=== PATIENT | female | born 1955 | race Caucasian/White ===

== ENCOUNTER 2018-03-04 10:17 | Emergency (ER) | payer MEDICAID ==
--- NOTE | 2018-03-04 10:53 | EDPHY ---
HPI/HX/ROS/PE/MDM Narrative: CLINICAL IMPRESSION: Postmenopausal bleeding ASSESSMENT/PLAN: This is a 62-year-old female who presents to the emergency department with 5 days of postmenopausal bleeding. Patient has been postmenopausal for 11 years. Bleeding is such that she needs to use a pad but she is otherwise hemodynamically stable. Ultrasound shows a thickened endometrium up to 2 and 0.5 cm, a large 6 and 0.5 cm right ovarian cyst, and several findings consistent with either submucosal fibroids or polyps within the uterus. No obvious source of bleeding on pelvic exam. I discussed case with Dr. Kelly who agrees to see the patient in office. Patient is comfortable with this plan. Warning signs return to ED sooner alignment discharge. DIFFERENTIAL DX: Differential diagnosis includes but not limited to endometrial carcinoma, uterine cancer, ovarian cancer, cervical dysplasia, abnormal postmenopausal vaginal bleeding ED PROCEDURES: See ultrasound and imaging results below ED COURSE: Ultrasound results discussed with Radiology, patient has a thickened endometrium to 2 and 0.5 cm with polyps versus submucosal fibroids and a 6 and 0.5 cm right ovarian cyst. I discussed this with Dr. Kelly, on-call for gynecology. She will be happy to see the patient in the office for consultation. Patient prefers to have consultation here so that she can continue caring for her elderly mother versus going back to [place]. CHIEF COMPLAINT: Abnormal vaginal bleeding HPI: This is a 62-year-old female visiting our area from or again who presents to the emergency department with abnormal vaginal bleeding since . Patient reports she has been 11 years postmenopausal and just on began having spotting and passage of clots. Today she had heavier bleeding, enough that she has to wear a pad. She reports some lower pelvic cramping. She has never had postmenopausal bleeding before but was told last year during a routine pelvic exam that she had"a lot of cysts". She apparently saw specialist for this and have them biopsied. Apparently the cysts were visible on a pelvic exam and she never had an ultrasound. There is no family history of gynecologic cancer. No reported breast mass and she is up-to-date on mammograms with no abnormal findings. No history of anemia and she denies shortness of breath, lightheadedness, chest pain, palpitations. No associated abdominal pain, nausea vomiting fever or chills. Patient states she is quite confident the bleeding is not rectal or bladder in source and she denies any dysuria. PMH: Hypothyroidism, hypertension Pertinent Past Surgical History: None reported Family History: No family history of gynecologic cancer Social History: Lives in [place] again, is here taking care of her 91-year-old mother, planning on returning home in May REVIEW OF SYSTEMS: All other systems negative Constitutional: No fever, no chills, appetite change. Cardiovascular: No chest pain, no palpitations. Respiratory: No cough, no shortness of breath. Gastrointestinal: No abdominal pain, no vomiting, diarrhea. Genitourinary: No hematuria, dysuria, flank pain, +pelvic pain, abnormal vaginal bleeding Musculoskeletal: No back pain, joint swelling, joint pain, myalgias. Skin: No rashes, color change. Neurological: No headache, dizziness, weakness. PHYSICAL EXAM: General Appearance: Alert, oriented, appropriate, cooperative, NAD, well hydrated, non-toxic appearing, VSS, no hypoxia. Respiratory: There are no retractions, lungs are clear to auscultation. Cardiac: Regular rate and rhythm, no murmurs or gallops. Gastrointestinal: Abdomen is soft, nontender, bowel sounds normal, no masses/ hernia, no rigidity, guarding or focal peritoneal findings. Genitourinary: Pelvic exam performed by myself, chaperoned by Eden GILMORE. Patient has bleeding that appears to be coming from the cervical os. There did not appear to be any outward signs of cervical dysplasia or obvious cervical lesions. No vaginal wall laceration or lesions. No adnexal tenderness or fullness on bimanual exam. Neurological: Alert and oriented x 3, CN 2-12 grossly intact, normal gait no ataxia, DTR's intact, normal sensation and strength Skin: Warm, dry, no rashes, no nodules on palpation. MEDICAL DECISION MAKING: Patient was seen independently. Secondary supervising physician at time of evaluation was Dr. Lara. Diagnosis: Postmenopausal vaginal bleeding. New, requires workup Summary: See Assessment and Plan for summary of ED visit Clinical lab tests: ordered / reviewed. Independent visualization of images, tracing, or specimens: Yes. Discussed patient with another provider: Dr. Kelly Patient Progress: Stable. - Data Points Imaging Results: Imaging Impressions Pelvic/Renal Ultrasound 03/04/18 11:37 Impression: 1. Diffuse endometrial thickening with 2 apparent masses versus submucosal fibroids seen transabdominally, suboptimally visualized transvaginally. This could be related to endometrial hyperplasia, malignancy, or polyps. 2. 6.5 cm benign-appearing right ovarian cyst. At a minimum, for a postmenopausal patient, annual ultrasound followup would be recommended. Findings discussed with Hi Reese on 03/04/2018 at 14:00. Laboratory Results: Laboratory Results 03/04/18 10:45 03/04/18 10:45 03/04/18 03/04/18 10:45 10:45 WBC 5.47 10^3/uL 10^3/uL (3.80-9.50) RBC 5.44 10^6/uL H 10^6/uL (4.18-5.33) Hgb 16.2 g/dL g/dL (12.6-16.3) Hct 46.3 % % (38.0-47.0) MCV 85.1 fL fL (81.5-99.8) MCH 29.8 pg pg (27.9-34.1) MCHC 35.0 g/dL g/dL (32.4-36.7) RDW 12.6 % % (11.5-15.2) Plt Count 262 10^3/uL 10^3/uL (150-400) MPV 8.6 fL L fL (8.7-11.7) Neut % (Auto) 26.2 % L % (39.3-74.2) Lymph % (Auto) 64.5 % H % (15.0-45.0) Chase % (Auto) 7.3 % % (4.5-13.0) Eos % (Auto) 1.6 % % (0.6-7.6) Baso % (Auto) 0.4 % % (0.3-1.7) Nucleat RBC Rel Count 0.0 % % (0.0-0.2) Absolute Neuts (auto) 1.43 10^3/uL L 10^3/uL (1.70-6.50) Absolute Lymphs (auto) 3.53 10^3/uL H 10^3/uL (1.00-3.00) Absolute Monos (auto) 0.40 10^3/uL 10^3/uL (0.30-0.80) Absolute Eos (auto) 0.09 10^3/uL 10^3/uL (0.03-0.40) Absolute Basos (auto) 0.02 10^3/uL 10^3/uL (0.02-0.10) Absolute Nucleated RBC 0.00 10^3/uL 10^3/uL (0-0.01) Immature Gran % 0.0 % % (0.0-1.1) Immature Gran # 0.00 10^3/uL 10^3/uL (0.00-0.10) Sodium 140 mEq/L mEq/L (135-145) Potassium 3.6 mEq/L mEq/L (3.3-5.0) Chloride 106 mEq/L mEq/L (97-110) Carbon Dioxide 24 mEq/l mEq/l (22-31) Anion Gap 10 mEq/L mEq/L (6-14) BUN 18 mg/dL mg/dL (7-23) Creatinine 0.7 mg/dL mg/dL (0.6-1.0) Estimated GFR > 60 Glucose 117 mg/dL H mg/dL (70-100) Calcium 10.1 mg/dL mg/dL (8.5-10.4) General Time Seen by Provider: 03/04/18 10:24 Initial Vital Signs: Initial Vital Signs Temperature (C) 36.6 C 03/04/18 10:17 Heart Rate 85 03/04/18 10:17 Respiratory Rate 16 03/04/18 10:17 Blood Pressure 136/82 H 03/04/18 10:17 O2 Sat (%) 93 03/04/18 10:17 O2 Delivery Mode Room Air Allergies/Adverse Reactions: No Known Allergies Allergy (Unverified 03/04/18 10:22) Home Medications: Medication Instructions Recorded Tru Thyroid 03/04/18 HCTZ (*) 03/04/18 Lisinopril 03/04/18 Departure - Departure Disposition: Home, Routine, Self-Care Condition: Good Instructions: Dysfunctional Uterine Bleeding (ED) Additional Instructions: DISCHARGE INSTRUCTIONS FROM YOUR DOCTOR Thank you for visiting our emergency department today. Please keep in mind that discharge from the emergency department does not mean that there is nothing wrong - it simply means that we have not identified an emergency condition that requires further evaluation or treatment in the hospital. You should always plan to follow up with primary care for re-evaluation of your condition in the next 2-3 days. If you have been referred to a specialist, please call as soon as possible (today or tomorrow) to schedule your follow up appointment at the appropriate time. The radiologist read her ultrasound as abnormal showing a thickened endometrium upwards of 2 and 0.5 cm, a large right ovarian cyst, and fibroids or polyps within the uterine cavity. You need to have follow-up with gynecology and will likely need biopsy. We have spoken with Dr. Kelly with OBGYN. She is expecting you to call their office and will be happy to see you for consultation. Please call them for a follow-up appointment. Could please call your insurance company for any concerns about coverage. Return to the emergency department sooner for heavy vaginal bleeding, lightheadedness, fever, shortness of breath, chest pain, nausea or vomiting, abdominal pain or any other concern. People present with illnesses and injuries in different ways, and it is always possible that we have missed something. You may always return for re-evaluation if symptoms worsen or if they are not improving or if you develop new/different symptoms. Again, thank you for choosing our emergency department. We hope that you feel better. Referrals: NONE *PRIMARY CARE P,. [Primary Care Provider] - As per Instructions Sugey Kelly MD [Medical Doctor] - As per Instructions
[2018-03-04 11:00] LABS: PLATELET COUNT 262 10^3/uL (150-400)
[2018-03-04 14:40] VITALS: BP 123/82
== END 2018-03-04 14:41 | disposition home or self-care (01) ==
DX: N95.0 Postmenopausal bleeding (principal); R93.89 Abnormal findings on diagnostic imaging of other specified body structures; N83.201 Unspecified ovarian cyst, right side; I10 Essential (primary) hypertension; E03.9 Hypothyroidism, unspecified

== ENCOUNTER 2018-05-08 06:07 | Day surgery (SDC) | payer MEDICAID ==
--- NOTE | 2018-04-30 16:58 | GHP ---
DATE OF ADMISSION: 05/08/2018 HISTORY OF PRESENT ILLNESS: Patient is a 62-year-old 4, para 3-0-1-3, postmenopausal female, who presented to my office for an ER followup. The patient was seen in emergency department February 22, 2018 secondary to postmenopausal bleeding. The patient noted some abnormal discharge and the next day around noted bright red bleeding for 24-hour duration. She experienced minimal cramping at the time. Bleeding then stopped and then began again around March 04 for another 24 hours. The patient has been menopausal for the past 11 years now. She denies any previous episodes of vaginal bleeding. She is currently not on any hormone replacement therapy. She denies any GI or complaints. The patient does have a history of hypertension and thyroid disease that is stable on medication. The patient had a pelvic ultrasound done in the emergency room showing a uterus measuring 7 x 5 x 10 cm with fibroids x2, 1st measuring 3 x 4 cm, and the 2nd measuring 4 x 4 cm obscuring the endometrium which is diffusely thickened; there was also noted a 6.5 cm simple cyst on the right ovary. When the patient first saw me, she was counseled on postmenopausal bleeding, the possibility of uterine cancer and the concern of her thickened lining. Endometrial biopsy was recommended that day in the office and the patient declined secondary to pain in the vagina at the time of exam in the emergency room. She is considering "having everything removed anyway" via hysterectomy. Discussed first proceeding with a D and C under anesthesia with frozen pathology , and if pathology comes back negative, then proceeding with a total laparoscopic hysterectomy, bilateral salpingo-oophorectomy. The patient then returned to my office for her preop visit. She states she had "plenty of time to think about things." She has had no further episodes of vaginal bleeding since March 04. She does have an increased mucousy discharge. She denies any abdominal pain, but does note cramping; patient states she "feels like I am having contractions." It is relieved with Advil. The patient at this time does not want a hysterectomy. She does still want to proceed with a sample of the lining of the uterus and then going in laparoscopically and taking a look at the cyst on the ovary because she is experiencing cramping and having her tubes removed for ovarian cancer risk reduction. PAST OB HISTORY: In 1971, uncomplicated full-term vaginal delivery. 1977, full -term uncomplicated vaginal delivery. 1987, primary . SAB x1. 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 Cycles used to be monthly for 3 or 4 days. She has been menopausal now for the past 11 years and not on any hormone replacement therapy. Denies a history of abnormal Pap smears or any exposure to sexually transmitted diseases. CURRENT MEDICATIONS: Include lisinopril, HCTZ, and [place] Thyroid. ALLERGIES: No known drug allergies. PAST MEDICAL HISTORY: Hypertension, osteopenia, thyroid disease. PAST SURGICAL HISTORY: . FAMILY HISTORY: Father was an alcoholic and secondary to liver failure. She has 2 sisters with thyroid disease. Mother is still alive at 90 years of age. SOCIAL HISTORY: Patient is and lives with her . 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 Denies any current alcohol, tobacco, or illicit drug use. REVIEW OF SYSTEMS: A 10-point review of systems is negative. Pertinent positives noted in HPI. LABORATORY: H and H, 15.8 and 46.7. BMP is all normal. STUDIES: As above. PHYSICAL EXAMINATION: VITAL SIGNS: On admission, vital signs are stable. Patient is afebrile. GENERAL APPEARANCE: Patient is a well-nourished, well- developed female. Alert and oriented x3. SKIN: Warm, dry without rash. NEURO : Grossly intact. CARDIOVASCULAR: Regular rhythm. PULMONARY: Lungs clear to auscultation bilaterally. ABDOMEN: Soft, nondistended, nontender. Pfannenstiel well healed. PELVIC: Patient declined exam at time of pre-op visit. ASSESSMENT AND PLAN: Patient is a 62-year-old 4, para 3-0-1-3, postmenopausal female who presents with postmenopausal bleeding, thickened lining on ultrasound, uterine fibroids and a large, simple ovarian cyst. 1. Discussed the procedure including diagnostic hysteroscopy with possible removal of polyps, D and C with frozen section and if negative, then will proceed with a diagnostic laparoscopy with removal of bilateral tubes for lowering risk of ovarian cancer and possible removal of ovarian cyst and/or ovary. Discussed its limitations, n.p.o. status, and post-op recovery. 2. Discussed risks, benefits, and alternatives with the patient including risk of uterine perforation as well as risk of damage to surrounding organs, bleeding , and infection. 3. Patient is aware that if frozen section does come back abnormal, we will not proceed with diagnostic laparoscopy and will send patient to Gynecology Oncology for treatment, which would probably likely be surgical. 4. Antibiotics electronics lead to operating room. 5. Sequential compression devices for deep venous thrombosis prophylaxis. /[id number]/MODL MTDD
[2018-05-08] MEDS ORDERED: ceFAZolin 2 GM/DEXTROSE 100 ML IV ONE (06:14)
[2018-05-08] MEDS ORDERED: LR 1,000 ML IV ONE (06:15)
[2018-05-08] MEDS ORDERED: LIDOCAINE 1% 2 ML INJ ID PRN (06:15)
[2018-05-08] MEDS ORDERED: MIDAZOLAM 2 MG/2 ML VIAL IVP ONE (07:06)
--- NOTE | 2018-05-08 07:08 | PDANEPAE ---
ANE History of Present Illness postmenopausal bleeding here for hysteroscopy ANE Past Medical History - Cardiovascular History Hx Hypertension: Yes Hx Arrhythmias: No Hx Chest Pain: No Hx Coronary Artery / Peripheral Vascular Disease: No Hx CHF / Valvular Disease: No Hx Palpitations: No - Pulmonary History Hx COPD: No Hx Asthma/Reactive Airway Disease: No Hx Recent Upper Respiratory Infection: No Hx Oxygen in Use at Home: No Hx Sleep Apnea: No Sleep Apnea Screening Result - Last Documented: Positive - Neurologic History Hx Cerebrovascular Accident: No Hx Seizures: No Hx Dementia: No - Endocrine History Hx Diabetes: No Hypothyroid: Yes Obesity: yes, moderate Endocrine History Comment: HYPOTHYROID - Renal History Hx Renal Disorders: No - Liver History Hx Hepatic Disorders: No - Neurological & Psychiatric Hx Hx Neurological and Psychiatric Disorders: No - Cancer History Hx Cancer: No - Congenital Disorder History Hx Congenital Disorders: No - GI History Hx Gastrointestinal Disorders: No - Other Health History Other Health History: ECZEMA TEENAGER - Chronic Pain History Chronic Pain: Yes (KNEE PAIN R) - Surgical History Prior Surgeries: C SECTION. TONSILLECTOMY ANE Review of Systems Review of systems is: negative Review of Systems: - Exercise capacity METS (RN): 5 METS ANE Patient History - Allergies Allergies/Adverse Reactions: No Known Allergies Allergy (Unverified 03/04/18 10:22) - Home Medications Home medications: home medication list seen and reviewed Home Medications: Herbals/Supplements -Info Only 1 ea PO DAILY 05/04/18 [Last Taken Unknown] Lisinopril/Hctz 20/12.5MG [Zestoretic/Prinzide 20/12.5MG (*)] 1 ea PO DAILY [Last Taken Unknown] Thyroid [[place] Thyroid 60 MG (*)] 60 mg PO DAILY10 05/04/18 [Last Taken Unknown ] - NPO status NPO Since - Liquids (Date): 05/08/18 NPO Since - Liquids (Time): 05:00 NPO Since - Solids (Date): 05/07/18 NPO Since - Solids (Time): 17:30 - Anes Hx Anes Hx: no prior problems - Smoking Hx Smoking Status: Never smoked - Family Anes Hx Family Hx Anesthesia Complications: NEG ANE Labs/Vital Signs - Vital Signs Blood Pressure: 156/84 Heart Rate: 101 Respiratory Rate: 16 O2 Sat (%): 94 Height: 165.1 cm Weight: 97.522 kg ANE Physical Exam - Airway Neck exam: FROM Mallampati Score: Class 2 Mouth exam: normal dental/mouth exam - Pulmonary Pulmonary: no respiratory distress - Cardiovascular Cardiovascular: regular rate and rhythym - ASA Status ASA Status: II ANE Anesthesia Plan Anesthesia Plan: general endotracheal anesthesia
--- NOTE | 2018-05-08 07:12 | PDHPUP ---
History & Physical Update H&P update statement: This history and physical update is based on an assessment of the patient which was completed after admission or registration (within 24 hours), but prior to the surgery/procedure. H&P update: H&P reviewed & patient examined, no change in patient's condition since H&P completed
[2018-05-08] MEDS ORDERED: PROPOFOL 200 MG/20 ML VIAL ONE (07:14)
[2018-05-08] MEDS ORDERED: fentaNYL 100 MCG/2 ML INJ ONE ×2 (07:14)
[2018-05-08] MEDS ORDERED: ROCURONIUM 50 MG/5 ML VIAL ONE (07:16)
[2018-05-08] MEDS ORDERED: KETOROLAC 30 MG/1 ML SDV ONE (07:17)
[2018-05-08] MEDS ORDERED: DEXAMETHASONE 4 MG/ML VIAL ONE (07:17)
[2018-05-08] MEDS ORDERED: ONDANSETRON 4 MG/2 ML VIAL ONE (07:17)
[2018-05-08] MEDS ORDERED: SUGAMMADEX SODIUM 200 MG/2 ML VIAL IVP ONE (07:17)
[2018-05-08] MEDS ORDERED: LIDOCAINE 2% 5 ML SDV ONE (07:17)
[2018-05-08] MEDS ORDERED: BUPIVACAINE 0.5% 30 ML SDV ONE (07:37)
[2018-05-08] MEDS ORDERED: SILVER NITRATE APPLICATOR 1 APPL TP ONE (07:37)
[2018-05-08] MEDS ORDERED: ONDANSETRON 4 MG/2 ML VIAL IVP PRN (07:54)
[2018-05-08] MEDS ORDERED: fentaNYL 100 MCG/2 ML INJ IVP PRN (07:54)
[2018-05-08] MEDS ORDERED: NALOXONE HCL 0.4 MG/ML INJ IVP PRN (07:54)
[2018-05-08] MEDS ORDERED: LR 500 ML IV PRN (07:54)
[2018-05-08] MEDS ORDERED: PROMETHAZINE HCL 25 MG/ML INJ IVP PRN (07:54)
[2018-05-08] MEDS ORDERED: ALBUTEROL 3 ML DEYVIAL IH PRN (07:54)
[2018-05-08] MEDS ORDERED: HYDROCODONE/APAP 5/325 TAB PO PRN (07:54)
[2018-05-08] MEDS ORDERED: oxyCODONE IR 5 MG TAB PO PRN (07:54)
[2018-05-08] MEDS ORDERED: ACETAMINOPHEN 500 MG TAB PO PRN (07:54)
[2018-05-08] MEDS ORDERED: HYDROmorphONE/DILAUDID 2 MG/ML INJ IVP PRN (07:54)
[2018-05-08] MEDS ORDERED: METOCLOPRAMIDE 10 MG/2 ML VIAL IVP PRN (07:54)
--- NOTE | 2018-05-08 08:08 | POSTANESTH ---
Post Anesthetic Evaluation Cardiovascular Status: Normal, Stable Respiratory Status: Normal, Stable Level of Consciousness/Mental Status: Can Participate in Eval, Mildly Sleepy, Arousable Pain Control: Adequate, Prn Tx Ordered Nausea/Vomiting Control: Adequate, Prn Tx Ordered Complications Possibly Related to Anesthesia: None Noted
--- NOTE | 2018-05-08 08:50 | POSTOPPROG ---
Post Op Note Date of Operation: 05/08/18 Surgeon: Ya Momin Tour Conductor: None Anesthesiologist: Roger Felix Anesthesia: GET(General Endotracheal) Pre-op Diagnosis: PMB, thickened endometrium, uterine fibroids, ovarian cyst Post-op Diagnosis: MARY; frozen section revealed carcinoma Indication: 62 y/o w/ PMB x2; u/s-thick, hetero endo, ut fibroids, R simp cyst Procedure: Diagnostic hysteroscopy; D&C with frozen section Findings: Ut sounded 8cm; lots prolif endo and vascularity in cavity; ostia not seen Inf/Abcess present in the surg proc area at time of surgery?: No Depth: Organ Space EBL: Minimal (15cc) Total fluids administered: 550 cc LR UO: pt emptied bladder prior Complications: None Specimen(s): Endometrial curettings
[2018-05-08 11:22] VITALS: BP 124/85
--- NOTE | 2018-05-08 11:38 | GOP ---
[f rep st] OPERATIVE REPORT DATE OF OPERATION: 05/08/2018 SURGEON: Ya Momin DO MANAGER MECHANICAL MAINTENANCE: None. ANESTHESIA: General endotracheal tube. ANESTHESIOLOGIST: Roger Felix MD PREOPERATIVE DIAGNOSIS: 1. Postmenopausal bleeding. 2. Thickened endometrium. 3. Uterine fibroids. 4. Ovarian cyst. POSTOPERATIVE DIAGNOSIS: 1. Postmenopausal bleeding. 2. Thickened endometrium. 3. Uterine fibroids. 4. Ovarian cyst. 5. Frozen section revealed carcinoma. PROCEDURE PERFORMED: Diagnostic hysteroscopy, dilation and curettage. FINDINGS: Uterus is anteverted, slightly enlarged, mobile with no adnexal masses noted on bimanual exam. The cervix was multiparous with no lesions. Uterus was sounded to 8-9 cm. Upon entry into the uterine cavity, there was lots of proliferative tissue noted as well as vascularity. No definitive masses noted throughout the cavity and the coronal areas were not visualized bilaterally with the corresponding tubal ostia. No direct intraluminal lesions seen. SPECIMENS: Endometrial curettings. ESTIMATED BLOOD LOSS: 15 cc. INDICATIONS: The patient is a 62-year-old 4, para 3-0-1-3, with first episode of postmenopausal bleeding around [facility]. She has had 2 episodes , both 24-hour duration. She has had no bleeding since. Ultrasound revealed a thickened, heterogeneous endometrium, that was difficult to measure secondary to fibroids distorting the cavity; there was also noted a 6 cm right simple ovarian cyst. The patient has noted some bloating as well as a weight gain in her abdomen. Patient declined a pelvic exam in the office as well as an endometrial biopsy. Discussed proceeding to the operating room for a hysteroscopy and D and C with frozen section and, if pathology is benign then would proceed with a laparoscopy with removal of bilateral tubes and the ovary with cyst. Discussed risks, benefits, and alternatives of the procedure with the patient including but not limited to bleeding, infection, damage to surrounding organs, and risk of uterine perforation. The patient understands all risks at this time. Patient was properly consented. DESCRIPTION OF PROCEDURE: The patient was taken to the operating room where general anesthesia was obtained without difficulty. She was then placed in dorsal lithotomy position, and then prepped and draped in the usual sterile fashion. After WHO time-out was performed, an open-ended speculum was placed in the vagina and the cervix was visualized. The anterior lip of the cervix was thrn grasped with an Allis clamp. The uterus was sounded to a depth of 8-9 cm. The endocervical canal was then progressively dilated with Hegar dilators to a #6. The small hysteroscope with attached video camera was then introduced into the uterine cavity using sterile saline solution as distending medium. Endometrial cavity was distended with fluid. The cavity was difficult to visualize secondary to all the proliferative tissue. Findings as noted above. The hysteroscope was then removed without difficulty. We then turned our attention to the curettage. Using a sharp curette, the four quadrants of the uterus was curetted. There was a large amount of tissue obtained which was sent to pathology for frozen section which revealed carcinoma per pathologist. At this time, all instruments were removed from the vagina. Hemostasis was noted. The procedure was complete and we did not proceed with a laparoscopy. The patient tolerated the procedure well. No complications. Sponge, lap, and instrument counts correct x2. The patient was then taken out of dorsal lithotomy position, awakened, and taken to the recovery room in stable condition. IV FLUIDS: 550 cc LR. URINE OUTPUT: Patient emptied her bladder prior to the procedure. /[id number]/MODL MTDD
== END 2018-05-08 11:08 | disposition home or self-care (01) ==
LOC: FSGY 06:07 → F3E 06:07 → UNDOADMOB 06:07 → EDSTATUS 07:30 → UNDODISOB 11:08 → FSGY 11:08
PROVIDERS: ATTEND Obstetrics & Gynecology
PROC: 0UDB8ZX Extraction of Endometrium, Via Natural or Artificial Opening Endoscopic, Diagnostic (ICD-10-PCS; principal; 2018-05-08 07:30)
DX: C54.1 Malignant neoplasm of endometrium (principal); D25.9 Leiomyoma of uterus, unspecified; N95.0 Postmenopausal bleeding; I10 Essential (primary) hypertension; E03.9 Hypothyroidism, unspecified
CPT/HCPCS: J0690; J1100; J1885; J2250; J2405; J2704; J3010